=== PATIENT | male | born 1990 | race American Indian/Alaskan Native ===

== ENCOUNTER 2018-02-07 09:52 | Outpatient (CLI) | payer OTHER ==
--- NOTE | 2018-02-08 07:24 | XRay Report ---
RIGHT FOREARM RADIOGRAPHS INDICATION: Bipolar, PTSD, schizophrenia. COMPARISON: None similar. FINDINGS: AP and lateral right forearm radiographs demonstrate intact bones and soft tissues. Slight negative ulnar variance. Included elbow and wrist articulations otherwise appear within normal limits. CONCLUSION: No acute radiographic abnormality. Thank you for the opportunity to participate in this patient's care.
--- NOTE | 2018-02-08 08:01 | XRay Report ---
CERVICAL SPINE RADIOGRAPHS INDICATION: Bipolar, PTSD, schizophrenia. COMPARISON: None similar. FINDINGS: AP, lateral, open mouth and swimmer's views of the cervical spine, 5 images demonstrate normal imaged dens and symmetric lateral masses. Intact craniocervical articulation on the lateral view with normal prevertebral soft tissues and airway. Slight, 1 mm retrolisthesis of C2 over C3. Minimal C6 and C7 degenerative spurring possible. Otherwise normal vertebral body stature, alignment and disc heights. Clear imaged lung apices. CONCLUSION: No acute cervical spine radiographic abnormality with possible slight degenerative changes, as described. Please correlate. Thank you for the opportunity to participate in this patient's care.
--- NOTE | 2018-02-08 08:04 | XRay Report ---
LUMBAR SPINE RADIOGRAPHS INDICATION: Bipolar, PTSD, schizophrenia. COMPARISON: None similar at this institution. FINDINGS: AP and lateral lumbar spine radiographs demonstrate normal vertebral body stature and alignment. Slight L5-S1 disc narrowing not entirely excluded. Normal remainder disc heights. Nonobstructive bowel gas pattern. Intact SI joints. CONCLUSION: No acute lumbar radiographic abnormality with L5-S1 disc narrowing though questioned, as described. Please correlate. Thank you for the opportunity to participate in this patient's care.
== END 2018-02-07 09:53 | disposition home or self-care (01) ==
LOC: XRAY 09:52
PROVIDERS: ATTEND Internal Medicine
DX: F31.9 Bipolar disorder, unspecified (principal); F43.10 Post-traumatic stress disorder, unspecified; F20.9 Schizophrenia, unspecified; X58.XXXA Exposure to other specified factors, initial encounter; Y93.89 Activity, other specified; Y92.89 Other specified places as the place of occurrence of the external cause; Y99.8 Other external cause status
CPT/HCPCS: 72040; 72100

== ENCOUNTER 2019-09-03 08:13 | Outpatient (CLI) | payer OTHER | END 2019-09-03 08:14 | disposition home or self-care (01) | LOC: PF 08:13 | PROVIDERS: ATTEND Internal Medicine | DX: F20.9 Schizophrenia, unspecified (principal); F32.9 Major depressive disorder, single episode, unspecified; F41.9 Anxiety disorder, unspecified; F43.10 Post-traumatic stress disorder, unspecified | CPT/HCPCS: 94010 ==